=== PATIENT | female | born 1980 | race Caucasian/White ===

== ENCOUNTER 2020-04-04 11:14 | Outpatient (REF) | payer OTHER, SELFPAY | END 2020-04-04 11:15 | disposition home or self-care (01) | LOC: HO.LAB 11:14 | PROVIDERS: Visit Provider Internal Medicine | DX: Z20.828 Contact with and (suspected) exposure to other viral communicable diseases (principal) | CPT/HCPCS: C9803; U0003 ==

== ENCOUNTER 2020-04-30 12:24 | Outpatient (REF) | payer OTHER, SELFPAY | END 2020-04-30 12:25 | disposition home or self-care (01) | LOC: HO.LAB 12:24 | PROVIDERS: PCP Internal Medicine; Visit Provider Internal Medicine | DX: Z20.828 Contact with and (suspected) exposure to other viral communicable diseases (principal) | CPT/HCPCS: C9803; U0003 ==

== ENCOUNTER → 2022-05-15 13:53 | Outpatient (BNVA) | payer OTHER, SELFPAY | PROVIDERS: PCP Internal Medicine; Visit Provider Nurse Practitioner Family | DX: Z13.89 Encounter for screening for other disorder (principal) ==

== ENCOUNTER → 2022-05-28 10:57 | Outpatient (REF) | payer OTHER, SELFPAY | LOC: HO.SL 10:57 | PROVIDERS: PCP Internal Medicine; Visit Provider Nurse Practitioner Family | DX: E66.01 Morbid (severe) obesity due to excess calories (principal); R06.83 Snoring; R06.81 Apnea, not elsewhere classified; R53.83 Other fatigue; G47.19 Other hypersomnia | CPT/HCPCS: 95806 ==

== ENCOUNTER → 2022-06-02 07:57 | Outpatient (BNVA) | payer OTHER, SELFPAY | PROVIDERS: PCP Internal Medicine; Referring Provider Internal Medicine; Visit Provider Physician Assistant | DX: Z13.89 Encounter for screening for other disorder (principal) ==

== ENCOUNTER → 2022-06-09 14:29 | Outpatient (BNVA) | payer OTHER, SELFPAY | PROVIDERS: PCP Internal Medicine; Visit Provider Physician Assistant Surgical | DX: Z13.89 Encounter for screening for other disorder (principal) ==

== ENCOUNTER 2022-06-29 07:48 | Outpatient (REF) | payer BC, OTHER, SELFPAY ==
--- NOTE | ~2022-06-29 | XR_ITS ---
EXAMINATION: XR CHEST CLINICAL INFORMATION: Morbid to severe obesity COMPARISON: None TECHNIQUE: 2 views of the chest were obtained. FINDINGS: No significant abnormality is noted involving the heart, lungs, mediastinum, bony thorax or soft tissues. XR/XR chest 2V IMPRESSION: Unremarkable chest examination.
[2022-06-29 08:00] LABS: MANUAL DIFF FLAG NO
--- NOTE | 2022-06-29 08:08 | ECG_ITS ---
Test Reason : morbid obesity Blood Pressure : / mmHG Vent. Rate : 065 BPM Atrial Rate : 065 BPM P-R Int : 146 ms QRS Dur : 082 ms QT Int : 394 ms P-R-T Axes : 030 013 010 degrees QTc Int : 409 ms Normal sinus rhythm Normal ECG No previous ECGs available Referred By: Phan Ramirez Electronically Signed By:HIPOLITO ORDAZ MD
[2022-06-29 08:40] LABS: Basophils Absolute Auto 0.1 X10*3/uL (0.0-0.2); Basophils Percent Auto 1.2 % (0-2); Eosinophils Absolute Auto 0.3 X10*3/uL (0.0-0.4); Eosinophils Percent Auto 4.9 % (0-4); Hematocrit 41.4 % (37.0-47.0); Hemoglobin 13.6 g/dl (12.0-16.0); Imm Gran Abs Auto 0.01 X10*3/uL (0.00-0.03); Imm Gran Pct Auto 0.2 % (0.0-0.4); Lymphocytes Percent Auto 30.3 % (20-40); Mean Corpuscular HGB Conc 32.9 g/dl (31.0-35.0); Mean Corpuscular Hemoglobin 27.6 pg (27.0-33.0); Mean Corpuscular Volume 84.1 fL (80.0-98.0); Mean Platelet Volume 10.3 fL (9.4-12.3); Monocytes Absolute Auto 0.6 X10*3/uL (0.1-1.2); Monocytes Percent Auto 8.5 % (2-11); Neutrophils Absolute Auto 3.6 x10*3/uL (2.0-8.3); Neutrophils Percent Auto 54.9 % (45-73); Platelet Count 468 X10*3/uL (160-400); Red Blood Count 4.92 X10*6/uL (4.20-5.50); Red Cell Distribution Width 13.8 % (11.0-16.0); White Blood Count 6.6 X10*3/uL (4.8-10.8)
[2022-06-29 08:52] LABS: Estimated Average Glucose 108 mg/dL; Hemoglobin A1c % 5.4 %
[2022-06-29 09:20] LABS: Alanine Aminotransferase 28 U/L (0-31); Albumin Level 4.2 g/dL (3.5-5.0); Alkaline Phosphatase 22 U/L (39-117); Anion Gap 14 (12-20); Aspartate Amino Transferase 17 U/L (5-31); Bilirubin Total 0.4 mg/dL (0.0-1.0); Blood Urea Nitrogen 19 mg/dL (9-16); Calcium 9.7 mg/dL (8.4-10.2); Carbon Dioxide 26 mmol/L (22-29); Chloride 105 mmol/L (96-108); Cholesterol 188 mg/dL; Estimated Glomerular Filt Rate > 60; Glucose Random 82 mg/dL (60-115); HDL Cholesterol 46 mg/dL; Iron 43 mcg/dL (30-160); LDL Cholesterol Calculated 127 mg/dl; Percent Iron Saturation 14 % (15-50); Potassium 4.9 mmol/L (3.3-5.1); Sodium 140 mmol/L (135-145); Total Iron Binding Capacity 316 mcg/dL (228-428); Total Protein 7.1 g/dL (6.5-8.0); Triglycerides 76 mg/dL; Unsaturated Iron Binding 273 ug/dL
[2022-06-29 09:57] LABS: Ferritin 27 ng/mL (10-250); Folate 10.2 ng/mL (> or = 4.0); Insulin 8 uU/mL (2-29); TSH reflex Free T4 3.33 uIU/mL (0.32-4.0); Vitamin B12 914 pg/mL (200-900); Vitamin D 25-OH Total 20.4 ng/mL (>30)
[2022-06-30 13:58] LABS: Calcium (PTHI) 10.1 mg/dL (8.6-10.2); PTHI 46 pg/mL (16-77)
[2022-07-01 23:59] LABS: Zinc 74 mcg/dL (60-130)
[2022-07-02 04:34] LABS: Vitamin A 31 mcg/dL (38-98)
[2022-07-03 04:59] LABS: Vitamin B1 15 nmol/L (8-30)
== END 2022-06-29 07:49 | disposition home or self-care (01) ==
LOC: HO.XRAY 07:48
PROVIDERS: PCP Internal Medicine; Visit Provider Physician Assistant Surgical
DX: Z11.2 Encounter for screening for other bacterial diseases (principal); E66.01 Morbid (severe) obesity due to excess calories
CPT/HCPCS: 36415; 71046; 80053; 80061; 82306; 82607; 82728; 82746; 83036; 83525; 83540; 83970; 84425; 84443; 84590; 84630; 85025; 86140; 93005

== ENCOUNTER 2022-06-29 16:17 | Outpatient (REF) | payer BC, SELFPAY ==
[2022-07-03 15:07] LABS: H Pylori Breath Test Negative (Negative)
== END 2022-06-29 16:18 | disposition home or self-care (01) ==
LOC: HO.LNP 16:17
PROVIDERS: Visit Provider Physician Assistant Surgical
DX: E66.01 Morbid (severe) obesity due to excess calories (principal)
CPT/HCPCS: 83013

== ENCOUNTER → 2022-06-30 08:39 | Outpatient (BNVA) | payer BC, SELFPAY | PROVIDERS: PCP Internal Medicine; Referring Provider Physician Assistant Surgical; Visit Provider Dietitian, Registered | DX: E66.01 Morbid (severe) obesity due to excess calories (principal) | CPT/HCPCS: 97802 ==

== ENCOUNTER → 2022-07-09 09:30 | Outpatient (BNVA) | payer BC, SELFPAY | PROVIDERS: PCP Internal Medicine; Visit Provider Physician Assistant Surgical | DX: Z13.89 Encounter for screening for other disorder (principal) ==

== ENCOUNTER → 2022-07-14 09:00 | Outpatient (BNVA) | payer BC, SELFPAY | PROVIDERS: Referring Provider Physician Assistant Surgical; Visit Provider Counselor Mental Health | DX: F50.81 Binge eating disorder (principal); E66.01 Morbid (severe) obesity due to excess calories | CPT/HCPCS: 90791 ==

== ENCOUNTER → 2022-08-04 09:22 | Outpatient (BNVA) | payer BC, SELFPAY | PROVIDERS: PCP Internal Medicine; Visit Provider Physician Assistant Surgical | DX: Z13.89 Encounter for screening for other disorder (principal) ==

== ENCOUNTER 2022-08-18 08:00 | Outpatient (REF) | payer BC, SELFPAY ==
--- NOTE | ~2022-08-18 | FL_ITS ---
EXAMINATION: XR FLUOROSCOPY UPPER GI WITH AIR CLINICAL INFORMATION: Morbid/severe obesity due to excess calories. COMPARISON: None available. TECHNIQUE: Routine upper GI air-contrast study was performed in upright and lying position. FINDINGS: Following oral administration of thick barium and effervescent granules there is normal propagation bolus from the oral cavity through the pharynx, esophagus into stomach without any evidence of obstruction, narrowing or stricture. On placing patient supine and prone lying the course, caliber and peristalsis of the stomach, duodenal bulb and the sweep is normal. The mucosal pattern of the stomach and the duodenum is normal. Mild gastroesophageal reflux without hiatal hernia is noted. The soft tissues are normal. FLUOROSCOPY TIME: 1.4 minutes DOSE AREA PRODUCT: 40.94 uGy-m2 (microgray-meter squared) FL/FL upper GI w air IMPRESSION: Mild gastroesophageal reflux otherwise unremarkable upper GI air-contrast study.
--- NOTE | ~2022-08-18 | US_ITS ---
EXAMINATION: US COMPLETE ABDOMEN WITH LIVER ELASTOGRAPHY CLINICAL INFORMATION: Morbid/severe obesity due to excess calories. COMPARISON: None available. TECHNIQUE: Real-time imaging of the abdominal viscera. Noninvasive ultrasound liver fibrosis assessment is performed using Malathi ElastPQ point quantification shear wave elastography (2D-SWE) with a C5-2 MHz transducer. Multiple elastography samples are obtained. FINDINGS: PANCREAS: The visualized pancreatic head and body are normal in appearance. The remainder of the pancreas is obscured from visualization by the overlying bowel gas. ABDOMINAL AORTA: The proximal, middle, and distal aortic segments are normal in caliber. INFERIOR VENA CAVA: Visualized portions are normal. LIVER: Normal. The liver demonstrates normal size, contour and echogenicity. No focal lesion or intrahepatic biliary duct dilatation. The right lobe measures 17.7 cm in length. The left lobe measures 12.5 cm in length. Portal flow is hepatopedal. Shear wave liver elastography median stiffness is 2.48 m/s (reference: normal median stiffness is 1.3 m/s or less). IQR/median stiffness to assess sampling precision is 0.11 (reference: good quality data set is IQR/median stiffness of 0.15 or less). GALLBLADDER: There are multiple echogenic mobile gallstones without wall thickening. No pericholecystic fluid collection. COMMON BILE DUCT: Normal in caliber measuring 0.52 cm in diameter. RIGHT KIDNEY: There is anechoic cyst in the midpole measuring 1.4 x 0.9 x 1.4 cm. No hydronephrosis. No renal calculi or focal parenchymal lesions. The kidney measures 11.0 cm in maximum dimension. LEFT KIDNEY: Normal. No hydronephrosis. No renal calculi or focal parenchymal lesions. The kidney measures 11.1 cm in maximum dimension. SPLEEN: Normal. The spleen measures 10.4 cm in maximum dimension. FREE FLUID: None. Between the spleen and upper pole of left kidney is a solid mass measuring 3.3 x 3.2 x 3.4 cm, nonvascular. Adrenal lesion versus an exophytic solid mass. US/US abdomen comp w elastography IMPRESSION: Cholelithiasis without wall thickening or tenderness in right upper quadrant. Right renal 1.4 cm simple cyst There is a hypodense avascular solid appearing mass between the upper pole of left kidney and the spleen, probable adrenal adenoma, splenule or exophytic solid renal mass. Consider CT with and without contrast of upper abdomen. Liver elastography: Median liver stiffness measures 2.48 m/s suggestive of CSPH. REFERENCE: Society of Radiologists in Ultrasound Liver Stiffness Thresholds (2020): LIVER STIFFNESS THRESHOLDS: *Liver Stiffness equal or less than 1.3 m/s: High probability of being normal. *Liver Stiffness less than 1.7 m/s: In the absence of other known clinical signs, rules out compensated advanced chronic liver disease. *Liver Stiffness 1.7-2.1 m/s: Suggestive of compensated advanced chronic liver disease but need further test for confirmation. *Liver Stiffness over 2.1 m/s: Rules in compensated advanced chronic liver disease. *Liver Stiffness over 2.4 m/s: Suggestive of clinically significant portal hypertension. QUALITY OF DATA SET: *IQR/Median value equal or less than 0.15 implies a quality data set. *IQR/Median value over 0.15 implies a poor quality data set. SIGNIFICANT CHANGE FROM PRIOR EXAM: Significant change if liver stiffness measurement is 10% or greater from prior exam. OTHER CONSIDERATIONS: The stage of liver fibrosis may be overestimated in the setting of acute hepatitis, liver inflammation, elevated liver function tests, hepatic vascular congestion, obstructive cholestasis, non-fasting state, and infiltrative diseases such as amyloidosis and lymphoma. In some patients with NAFLD, the liver stiffness thresholds for compensated advanced chronic liver disease may be lower. In causes other than viral hepatitis and NAFLD, liver stiffness thresholds are not well established.
== END 2022-08-18 08:01 | disposition home or self-care (01) ==
LOC: HO.US 08:00
PROVIDERS: PCP Internal Medicine; Visit Provider Physician Assistant Surgical
DX: Z01.818 Encounter for other preprocedural examination (principal); E66.01 Morbid (severe) obesity due to excess calories; K21.9 Gastro-esophageal reflux disease without esophagitis
CPT/HCPCS: 74246; 76705; 76981

== ENCOUNTER 2022-08-27 11:01 | Outpatient (REF) | payer BC, OTHER, SELFPAY ==
--- NOTE | ~2022-08-27 | CT_ITS ---
EXAMINATION: CT ABDOMEN AND PELVIS WITHOUT AND WITH CONTRAST CLINICAL INFORMATION: Solid mass between the spleen and upper pole of the left kidney. Adrenal lesion versus exophytic solid mass. COMPARISON: Abdominal ultrasound of 08/18/2022 TECHNIQUE: Multidetector volumetric imaging was performed of the abdomen and pelvis before and after the IV administration of 100 mL of Omnipaque 300 intravenous contrast. Sagittal and coronal reformatted images were obtained on the technologist's workstation. This CT examination was performed using dose optimization techniques as appropriate, variously including the following: *Automated exposure control *Adjustment of mA and/or kV according to patient size (this includes techniques or standardized protocols for targeted exams where dose is matched to indication/reason for exam; i.e. extremities or head) *Use of iterative reconstruction technique DLP: 1605 mGy-cm FINDINGS: LUNG BASES: The visualized lung bases are unremarkable. No pleural or pericardial effusion. LIVER, GALLBLADDER, AND BILIARY TREE: The liver is normal in size, shape, and attenuation. No biliary ductal dilatation is present. There is a 5 mm low-density lesion seen at the dome of the diaphragm consistent with a small cyst. Patient status post cholecystectomy. PANCREAS: Unremarkable. No abnormal mass or peripancreatic inflammatory change. SPLEEN: Unremarkable. A small accessory spleen is present. ADRENAL GLANDS: There is some fullness of the right adrenal gland without significant nodule. The left adrenal gland is seen to contain a 3.5 x 4.0 x 3.0 cm mass as well as an adjacent 9 mm low-density mass. The nodule has Hounsfield unit measurements without contrast of -6 consistent with lipid rich adenoma. The smaller nodule has density measurements less than 10 consistent with small adenoma. Portal phase enhancement of the adrenal lesion is 52 Hounsfield units. 10 minute delayed imaging demonstrates a value of 17 Hounsfield units. The absolute and relative washout values are consistent with adenoma. KIDNEYS AND URETERS: The kidneys are normal in size, shape, and attenuation. No hydronephrosis, hydroureter, or calculi seen. No perinephric stranding. No solid lesion identified. There is a 1.9 x 1.1 cm right renal interpolar cyst. There is an 8 mm interpolar low density lesion within the left kidney likely related to cyst. BLADDER: Unremarkable. GASTROINTESTINAL TRACT: No dilated loops of large or small bowel are evident. No free air. There is a small amount of free fluid seen within the cul-de-sac. No pericolonic inflammatory change. The appendix is visualized and appears unremarkable. ABDOMINAL WALL: No significant hernia is appreciated. LYMPH NODES: No lymphadenopathy appreciated. VASCULAR: Unremarkable. PELVIC VISCERA: Within the left side of the uterine body there is a 3.1 x 2.5 cm low-density region consistent with fibroid. OSSEOUS STRUCTURES: No suspicious destructive bony lesions identified. CT/CT abdomen pelvis wo/w IV con IMPRESSION: A 4 cm left adrenal gland lesion consistent with adenoma as described above. Due to its size recommend a 12 month follow-up study. Small amount of free fluid within the pelvis as well as uterine fibroid. Bilateral renal cysts. Fleischner guidelines were followed.
[2022-08-27] MEDS: iohexoL 350 MG/ML 100 ML INFUS..BTL IV (11:54)
== END 2022-08-27 11:02 | disposition home or self-care (01) ==
LOC: HO.CT 11:01
PROVIDERS: PCP Internal Medicine; Visit Provider Physician Assistant Surgical
DX: R19.00 Intra-abdominal and pelvic swelling, mass and lump, unspecified site (principal)
CPT/HCPCS: 74178; Q9967

== ENCOUNTER → 2022-09-01 10:30 | Outpatient (BNVA) | payer BC, SELFPAY | PROVIDERS: PCP Internal Medicine; Visit Provider Physician Assistant Surgical | DX: Z13.89 Encounter for screening for other disorder (principal) ==

== ENCOUNTER → 2022-09-07 07:57 | Outpatient (BNVA) | payer BC, SELFPAY | PROVIDERS: PCP Internal Medicine; Referring Provider Internal Medicine; Visit Provider Surgery ==

== ENCOUNTER 2022-09-10 07:53 | Outpatient (REF) | payer BC, SELFPAY ==
[2022-09-10 08:15] LABS: MANUAL DIFF FLAG NO
[2022-09-10 08:27] LABS: Basophils Absolute Auto 0.1 X10*3/uL (0.0-0.2); Eosinophils Absolute Auto 0.3 X10*3/uL (0.0-0.4); Eosinophils Percent Auto 5.4 % (0-4); Hematocrit 40.9 % (37.0-47.0); Hemoglobin 13.5 g/dl (12.0-16.0); Imm Gran Abs Auto 0.01 X10*3/uL (0.00-0.03); Imm Gran Pct Auto 0.2 % (0.0-0.4); Lymphocytes Absolute Auto 1.5 X10*3/uL (1.2-4.9); Lymphocytes Percent Auto 24.6 % (20-40); Mean Corpuscular Hemoglobin 27.4 pg (27.0-33.0); Mean Platelet Volume 10.1 fL (9.4-12.3); Monocytes Absolute Auto 0.5 X10*3/uL (0.1-1.2); Monocytes Percent Auto 7.7 % (2-11); Neutrophils Absolute Auto 3.8 x10*3/uL (2.0-8.3); Neutrophils Percent Auto 61.1 % (45-73); Platelet Count 394 X10*3/uL (160-400); Red Blood Count 4.93 X10*6/uL (4.20-5.50); Red Cell Distribution Width 13.7 % (11.0-16.0); White Blood Count 6.1 X10*3/uL (4.8-10.8)
[2022-09-10 09:03] LABS: Estimated Average Glucose 103 mg/dL; Hemoglobin A1c % 5.2 %
[2022-09-10 09:10] LABS: Alanine Aminotransferase 32 U/L (0-31); Albumin Level 4.2 g/dL (3.5-5.0); Alkaline Phosphatase 25 U/L (39-117); Anion Gap 14 (12-20); Aspartate Amino Transferase 20 U/L (5-31); Bilirubin Total 0.6 mg/dL (0.0-1.0); Blood Urea Nitrogen 12 mg/dL (9-16); C Reactive Protein 2.38 mg/dL (< or = 0.50); Calcium 9.6 mg/dL (8.4-10.2); Carbon Dioxide 25 mmol/L (22-29); Chloride 104 mmol/L (96-108); Cholesterol 165 mg/dL; Estimated Glomerular Filt Rate > 60; Glucose Random 83 mg/dL (60-115); HDL Cholesterol 41 mg/dL; Iron 55 mcg/dL (30-160); LDL Cholesterol Calculated 110 mg/dl; Percent Iron Saturation 18 % (15-50); Potassium 4.6 mmol/L (3.3-5.1); Sodium 138 mmol/L (135-145); Total Iron Binding Capacity 298 mcg/dL (228-428); Total Protein 7.2 g/dL (6.5-8.0); Triglycerides 72 mg/dL; Unsaturated Iron Binding 243 ug/dL
[2022-09-10 09:36] LABS: Ferritin 52 ng/mL (10-250); TSH reflex Free T4 1.68 uIU/mL (0.32-4.0); Vitamin B12 1710 pg/mL (200-900); Vitamin D 25-OH Total 44.6 ng/mL (>30)
[2022-09-11 15:33] LABS: Calcium (PTHI) 9.7 mg/dL (8.6-10.2); PTHI 39 pg/mL (16-77)
[2022-09-16 00:48] LABS: Zinc 84 mcg/dL (60-130)
[2022-09-16 15:03] LABS: Vitamin B1 8 nmol/L (8-30)
[2022-09-17 21:44] LABS: Vitamin A 20 mcg/dL (38-98)
== END 2022-09-10 07:54 | disposition home or self-care (01) ==
LOC: HO.LAB 07:53
PROVIDERS: PCP Internal Medicine; Visit Provider Surgery
DX: Z01.818 Encounter for other preprocedural examination (principal); E66.01 Morbid (severe) obesity due to excess calories; D35.02 Benign neoplasm of left adrenal gland; K74.00 Hepatic fibrosis, unspecified; K76.0 Fatty (change of) liver, not elsewhere classified; G47.33 Obstructive sleep apnea (adult) (pediatric); Z79.899 Other long term (current) drug therapy
CPT/HCPCS: 36415; 80053; 80061; 82306; 82607; 82728; 83036; 83540; 83970; 84425; 84443; 84590; 84630; 85025; 86140

== ENCOUNTER 2022-09-16 06:09 | Inpatient (IN) | payer BC, OTHER, SELFPAY ==
[2022-09-09 12:43] VITALS: BMI 43.8
--- NOTE | 2022-09-15 08:44 | HO.ANESPROP2 ---
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 intensive care unit nurse to a significant other at home: Yes (9 year old daughter) Do you presently have visiting nurse or other home services: No Alcohol intake: current Alcohol intake frequency: holidays/special occasions only Patient Tobacco Use Status: Former Tobacco user Quit Date: 2012 Tobacco use type: Cigarette e-Cigarette/Vaping Use: Never Used service: No Current occupational status: employed Cognitive needs: No Hearing needs: No Vision needs: Yes Meds Allergies Allergy/AdvReac Type Severity Reaction Status Date / Time Sulfa (Sulfonamide Allergy Severe ANAPHYLAXIS Verified 09/10/22 08:27 Antibiotics) , [SULFA (SULFONAMIDE naphylaxis, ANTIBIOTICS)] throat swelling latex [LATEX] Allergy Mild RASH Verified 09/10/22 08:27 oxycodone AdvReac Intermediate Vomiting Verified 09/10/22 08:27 Exam Exam Date and Time: September 15, 2022 0844 Height,Weight and Vital Signs: Height 5 ft 1 in Weight 105.233 kg Pertinent Lab Results Pertinent Lab Results: Laboratory Tests 09/10/22 08:04 Blood Type A Positive Antibody Screen NEGATIVE Laboratory Tests 09/10/22 09/10/22 08:13 08:13 WBC 6.1 Hgb 13.5 Hct 40.9 Plt Count 394 Sodium 138 Potassium 4.6 Chloride 104 Carbon Dioxide 25 BUN 12 Creatinine 0.67 Narrative Narrative: EKG 06/2022 Vent. Rate : 065 BPM ? ? Atrial Rate : 065 BPM ?? P-R Int : 146 ms? QRS Dur : 082 ms ? ? QT Int : 394 ms ? ? ? P-R-T Axes : 030 013 010 degrees ?? QTc Int : 409 ms ? Normal sinus rhythm Normal ECG No previous ECGs available Assessment and Plan Assessment Anesthesia Assessment: Chart Reviewed Documented by User: Isreal Miller MD 09/16/22 07:42 PMFSH Past Medical History Medical History Binge-eating disorder, in partial remission, mild Excessive daytime sleepiness Fatigue History of depression History of infertility Loud snoring Morbid obesity ALMA DELIA (obstructive sleep apnea) PONV (postoperative nausea and vomiting) Witnessed apneic spells Patient : No Family History Family History Mother High cholesterol Arthritis Bone disease Father Kidney failure Daughter No problems noted. Family history of problems with anesthesia: No Surgical History Surgical History History of bilateral fallopian tube excision History of History of Problems with Anesthesia: No Social History Social History Household Members: Family Housing: House Are you a primary intensive care unit nurse to a significant other at home: Yes (9 year old daughter) Do you presently have visiting nurse or other home services: No Alcohol intake: current Alcohol intake frequency: holidays/special occasions only Patient Tobacco Use Status: Former Tobacco user Quit Date: 2012 Tobacco use type: Cigarette e-Cigarette/Vaping Use: Never Used service: No Current occupational status: employed Cognitive needs: No Hearing needs: No Vision needs: Yes Meds Allergies Allergy/AdvReac Type Severity Reaction Status Date / Time Sulfa (Sulfonamide Allergy Severe ANAPHYLAXIS Verified 09/10/22 08:27 Antibiotics) , [SULFA (SULFONAMIDE naphylaxis, ANTIBIOTICS)] throat swelling latex [LATEX] Allergy Mild RASH Verified 09/10/22 08:27 oxycodone AdvReac Intermediate Vomiting Verified 09/10/22 08:27 Exam Airway Mallampati Class: I TM Dist: >3cm Neck ROM: Full Heart: ok Lungs: ok Assessment and Plan Final Anesthetic Review Family History of Problems with Anesthesia: No History of Problems with Anesthesia: No NPO: Yes ASA Class: III Final Preanesthetic Review: No Changes in Pt Med Stat, Meds/Allgs Chart Reviewed, Consent Obtained/Reviewed and Anes Risks/Benef Reviewed Patient Risk: Intermediate Procedure Risk: Intermediate Anesthetic Plan Anesthetic Plan: GA and Agree w/ Assess. and Plan Disposition: Standard PACU
[2022-09-15 13:59] LABS: COVID-19 Test Negative (Negative); IDNOW Serial# 9DB6401D
[2022-09-16] VITALS (12 sets, daily range): BP systolic 117–154; BP diastolic 60–99; PULSE 60–83; RESP 15–19; TEMP 36–37.1; O2SAT 96–100; BMI 43.8
--- NOTE | 2022-09-16 06:54 | P.OP_ITS ---
Operative Note Operative Note Date of Service: 09/16/22 Narrative: Preop diagnosis: [Obesity, ALMA DELIA, NAFLD, liver fibrosis] Postop diagnosis: [Same] Procedure: [Laparoscopic sleeve gastrectomy, gastropexy, intraoperative esophagogastroscopy] Surgeon: Yaniv Ortiz MD Assist: [Elsie Nuñez PA-C] Anesthesia: [GET, Marcaine, 0.5% with epi] Estimated blood loss: [3cc] Specimen: [Portion of stomach with fundus] Intraoperative findings: [No evidence of a hiatal hernia, grossly normal liver, anterior stomach and visualized spleen] Indications: [The patient is a 42-year-old woman with obesity and obstructive sleep apnea, NAFLD & hepatic fibrosis per ultrasonography who has failed medical management of her obesity multiple times. She presented to the surgical weight loss program at a weight of 262 lb/BMI of 49.6. During her workup, she was noted to have a left adrenal incidentaloma which needs repeat CT in 1 year in 2023. Management options of her obesity and related health issues including continued medical management versus bariatric surgery were reviewed, including gastric bypass and sleeve gastrectomy. The patient wanted to proceed with a laparoscopic sleeve gastrectomy, intraoperative endoscopy, possible hiatal hernia repair and possible ventral hernia repair. I reviewed the inherent risks of this procedure which include, but are not limited to: Bleeding that could require another operation or blood transfusion; the inherent risks of transfusion reaction infectious disease from blood transfusions; the risk of staple line leaks that could cause sepsis, multi-system organ failure and ; the risk of mesenteric or deep vein thrombosis of the lower extremities that could cause a fatal pulmonary embolism was reviewed; the risk of GERD that could require conversion to gastric bypass was discussed; the risk of recurrent hiatal hernia, especially in the setting of weight regain was reviewed. The risk of weight regain if maladaptive eating and sedentary behavior continue was discussed. The importance of proper diet and increased activity to augment surgical weight loss and the fact that no operation would result in weight loss of poor dietary decisions and sedentary behavior are resumed were discussed at length and apparently understood. The patient had the option of having a it auditor present and declined this option. The patient seemed understand her options and wanted to proceed.] Procedure: [The patient was identified in the preoperative holding area and again an operating room 6. 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 She was placed on the operating room table in supine position, a footboard was utilized. She was induced in general endotracheal anesthesia administered with excellent effect. The patient was identified in the preoperative holding area by myself and again in the operating suite by myself and the OR team. Patient was placed supine on the operating table. Safety straps were utilized and a footboard utilized. The patient was induced in general endotracheal anesthesia administered with excellent effect. An appropriate time-out was performed. The patient's abdomen was then widely prepped and draped in the usual manner for surgery using chlorprep. Antibiotics per protocol were administered by Anesthesia. After infiltrating preemptive local in the skin and subcutaneous tissues in the left upper quadrant, a stab incision was made sharply in the left subcostal abdomen and the Veress needle inserted without incident. An appropriate drop test was performed then a pneumoperitoneum of 15 mmHg was obtained using carbon dioxide. Opening pressures were 7 mmHg. Next, a 5 mm 0 degree scope over a 5 mm Optiview trocar was used to access the abdomen via the epigastric incision in the midline. Once the abdomen was entered, the the trocar obturator was removed and the laparoscope was used to confirm there was no injury from the Veress needle nor trocar insertion injury to the bowel or mesentery, then the scope was switched to a 5 mm 45 degree laparoscope. Next, using preemptive local, additional 5 mm trocars were placed under direct laparoscopic vision on the patient's left abdomen, then right and the 5 mm midline trocar upsized to a 12 mm to accommodate the stapler. The patient was then positioned in reverse Trendelenburg and the liver retractor deployed through the right lateral 5 mm trocar and secured. A 40 Maltese ViSiGi bougie was inserted by Anesthesia per os and advanced to the stomach to decompress. It was then withdrawn to the GE junction all under direct laparoscopic vision. Dissection was begun along the greater curvature using the 5 mm [place] LigaSure for hemostasis and continued to the left waqas of the diaphragm. Dissection was then carried towards the pylorus to 3-4 cm from the pylorus and retro gastric adhesions lysed. The gastroesophageal fat pad was carefully mobilized taking care to avoid injury to the esophagus and stomach and dissection carried towards the short gastrics taking care to avoid injury to the spleen and splenic artery. The diaphragmatic hiatus was carefully examined for a hernia, and no apparent hernia was appreciated. Next, the 40 Fr ViSiGi bougie was advanced by anesthesia under direct vision and laparoscopic guidance and positioned in the antrum approximately 3 cm from the pylorus using laparoscopic graspers to serve as a guide for a stapled sleeve gastrectomy. Stapling was performed with [employer] power stapler, purple 45 and then 60 mm loads with good hemostasis. The bougie served as a guide to maintain the same sleeve caliber to avoid stricture & sleeve distortion. The 10 mm clip clinical dietitian was used to apply additional clips to the staple line. Care was taken to be sure that the sleeve laid flat and was without stricture. Once the sleeve was complete, the portion of stomach was placed in the lower abdomen to be sent for removal and permanent section. The staple line, gastrocolic omentum, spleen and short gastric areas were all inspected for hemostasis which was found to be good. After inspecting again for hemostasis, a gastropexy was performed using 2-0 Polysorb suture to secure the sleeve gastrectomy to the gastrocolic omentum. Next, I broke scrub perform an on-table upper endoscopy to assess the sleeve and the esophagus and stomach. The patient was returned to neutral position and the Olympus 180 gastroscope was advanced taking care to preserve the endotracheal tube. The esophagus was intubated without incident. Minimal air was insufflated and the scope advanced into the newly formed sleeve. The staple line was inspected for hemostasis and the morphology of the sleeve appeared straight with a uniform diameter. Intraoperatively, there was no evidence of staple line leak seen during laparoscopy as air was insufflated via endoscope. The scope was then used to aspirate the air from the sleeve withdrawn and removed. I then rescrubbed to return to the operative field and again inspected the field for hemostasis. After final assessment for hemostasis, the patient was returned to neutral position, a Jenny used to withdraw the resected gastric specimen which was sent for permanent section. The fascia of the 12 mm midline was closed using an 0 Polysorb figure of 8 on a suture passer under direct laparoscopic vision. The abdomen was then deflated and all trocars removed. The suture was then tied and the skin closed with 4-0 Monocryl subcuticular sutures. The abdomen was then washed and dried, benzoin and Steri-Strips applied followed by Tegaderms. The patient tolerated the procedure well was then extubated the recover in stable condition. All sponge needle and instrument counts were correct x2. The pt requested that I call her sister Ashley Romo at [phone] to a pprise her of the operation and typical apolinar/postoperative plan. Her questions seemed to be satisfactorily answered.]
--- NOTE | 2022-09-16 06:54 | MHC.SHP ---
Pre-Procedural Eval Section A Date of Service: 09/16/22 The patient is an INPATIENT: Yes The History & Physical has been completed within 30 days and I have reviewed it.: Yes Section B Chief Complaint: Obesity,ObstructiveSleepApnea,LiverFibrosis,NAFLD Allergies: Allergies Allergy/AdvReac Type Severity Reaction Status Date / Time Sulfa (Sulfonamide Allergy Severe ANAPHYLAXIS Verified 09/10/22 08:27 Antibiotics) , [SULFA (SULFONAMIDE naphylaxis, ANTIBIOTICS)] throat swelling latex [LATEX] Allergy Mild RASH Verified 09/10/22 08:27 oxycodone AdvReac Intermediate Vomiting Verified 09/10/22 08:27 Plan I have reviewed the history and physical and performed a pertinent physical examination on my patient. No changes have occurred unless specified. Time Spent With Patient Time: Total time managing care of this patient today ____ minutes.
--- NOTE | 2022-09-16 07:03 | PHA.MEDREC ---
Pharmacy Consult ? Medication Reconciliation Pharmacy has completed the medication reconciliation.
[2022-09-16] MEDS: Lactated Ringers 1,000 ML 150 ML IVCONT (07:11)
[2022-09-16] MEDS: Aprepitant 32 MG/4.4 ML VIAL IVPUSH (07:12)
[2022-09-16 07:24] LABS: UPreg QC Valid YES; Urine Pregnancy NEGATIVE (NEGATIVE)
--- NOTE | 2022-09-16 10:23 | PM.DS ---
DS: Providers Provider Date of Service: 09/17/22 Date of admission: 09/16/22 06:09 Primary care physician: Dian Park MD DS: Summary Hospital Course Hospital Course: ADMITTING DIAGNOSIS: morbid obesity,?ALMA DELIA, NAFLD, L adrenal cortical adenoma ? DISCHARGE DIAGNOSIS: same, s/p laparoscopic sleeve gastrectomy and gastropexy ? PAST SURGICAL HISTORY:?, bilateral fallopian tube excision ? PROCEDURE: upper endoscopy, laparoscopic sleeve gastrectomy and gastropexy ? DISCHARGE SUMMARY: ? History of Present Illness: ? The patient is a? 42? year-old woman with a BMI of? ?43.8 ? kg/m2 and associated co-morbidities as described above. The patient had extensive work-up, lost? ?30.8 ? lbs preoperatively and was electively scheduled for laparoscopic, possible open sleeve gastrectomy and gastropexy. Risks and complications of the surgery were discussed with the patient in advance, particularly the possibility of , pulmonary embolism, anastomotic leak, bleeding, bowel injury, GERD, cardiac, renal or pulmonary complications. The patient understood all the risks and was in agreement with the surgical plan. ? Hospital Course: ? The patient underwent an uneventful laparoscopic sleeve gastrectomy with gastropexy on the day of admission. Postoperatively, the patient was transferred to the surgical floor. The patient received IV Acetaminophen and IV dilaudid for pain control. Patient was started on bariatric phase 1 diet POD #0. On postoperative day one, the patient was feeling well without nausea, vomiting, fevers, or tachycardia. The patient had some mild incisional pain and the abdomen was soft.? ? On the morning of postoperative day one, the patient was continued on 1 ounce of water or ice every half hour. During the day, the patient did fairly well, having some incisional pain, but able to ambulate adequately and to tolerate liquids well. ? Since the patient is doing well, we decided that the patient was ready to be discharged. The patient was given instructions to follow-up with me next week and to call my office for any fever over 101, persistent abdominal pain, nausea, vomiting, GERD, symptoms of DVT such as calf tenderness, or leg swelling, or pulmonary embolism such as chest pain or shortness of breath.? The patient was also instructed to drink 40-60 ounces of liquids per day using the 1-ounce cups. The patient had been given prescriptions for Tylenol for pain, Zofran prn for nausea, and pantoprazole and carafate previously. The patient was encouraged to ambulate and use the incentive spirometer. The patient was allowed to shower, but no baths, and encouraged to stay active at home. All of these instructions were given to the patient personally. All questions were answered and the patient understood all instructions, the instructions were also given to the patient in print. Time Spent with Patient Time attestation: Total time managing care of this patient today ____ minutes. Discharge coordination time: Less than 30 minutes Quality: Safe Use of Opioids Does Pt have an Active Cancer Diagnosis on the Problem List?: No Quality: Stroke Does the patient have a stroke diagnosis?: No Physical Exam Vital Signs: Vital Signs: Last Vital Signs Temp 98.1 F 09/16/22 10:13 Pulse 68 09/16/22 10:13 Resp 19 09/16/22 10:13 BP 140/84 H 09/16/22 10:13 Pulse Ox 100 09/16/22 10:13 O2 Del Method Nasal Cannula wit h Capnography 09/16/22 10:13 O2 Flow Rate 3 09/16/22 10:13 BMI result Body Mass Index 43.8 DS: Data Data Completed and Pending Pending studies at discharge: Pending at discharge 09/16/22 09:30 Surgical [PTH] Routine Labs on day of discharge: Laboratory Results - last 24 hr 09/15/22 09/16/22 13:09 06:10 Urine Test NEGATIVE COVID-19 ([facility]) Negative COVID-19 Clin Com See Note Discharge Plan Discharge Anticipated Discharge Date/Time: 09/17/22 10:00 Patient Disposition: Home, Self-Care Discharge Diagnosis: morbid obesity Referrals: Dian Park MD [Primary Care Provider] - 1 Week Discharge Medications: Continued ondansetron HCl 4 mg tablet 4 mg PO Q6H PRN (Reason: nausea and vomiting) Qty: 20 0RF pantoprazole 40 mg tablet,delayed release (DR/EC) 40 mg PO QAM 30 Days Qty: 30 2RF sucralfate 100 mg/mL suspension 10 ml PO BID 30 Days Qty: 600 2RF acetaminophen 500 mg/15 mL liquid 500 mg PO Q6H PRN (Reason: fever or pain) Qty: 237 2RF Discontinued cholecalciferol (vitamin D3) 125 mcg (5,000 unit) capsule 125 mcg PO DAILY Qty: 90 0RF vitamin A palmitate 10,000 unit capsule 10,000 unit PO DAILY Qty: 90 1RF polyethylene glycol 3350 [Miralax] 17 gram powder in packet See Rx Instructions PO DAILY Qty: 14 0RF Rx Instructions: Take 7 packets 2 days before surgery and 7 packets 1 day before surgery. Mix each packet with 8 oz's of water before surgery. Discharge Orders: Discharge Order (Routine); Ordered 09/17/22 Ordered By: Elsie Nuñez Activity on Discharge: No heavy lifting Stand Alone Forms: Patient Portal Discharge page Care Plan Goals: weight loss Health Concerns: morbid obesity Plan of Treatment: No tub baths, sex or returning to work until discussed at first post op appointment. No alcohol, tobacco or illegal drug use. Continue to use incentive spirometer hourly while awake. Walk in home for 5- 10 minutes every 2 hours during the first week. Wear abdominal binder with activity. Follow all meal plan instructions from your bariatric surgeon. Review bariatric handbook and call with any questions. Discharge Instructions 1. Please call your doctor or come back to the emergency room should any new symptoms arise. 2. Activity: abstain from alcohol,? limited stair climbing, no bending, no driving, no exercise, no illicit substances, no lifting, no sex, no tub bath, no work. 4. Diet: follow your bariatric surgeons recommendations for advancing diet. 5. Dressing Change/Wound Care: Your incisions are covered with waterproof dressings. You can shower with these and pat dry. Do not rub over dressings or incisions. If the area is tender, you may apply an ice pack for short intervals (no more than 20 minutes on, followed by at least 20 minutes off). Do not apply heat. Do not use creams, lotions, or topical antibiotics unless instructed to do so by your surgeon. 6. Call your doctor if: - Your temperature exceeds 101.5 F - You experience excessive pain or swelling - You have an unexpected reaction to medication - You have excessive bleeding - You experience continued vomiting/nausea - Your incision begins to separate - Your incision shows signs of infection such as increased redness, swelling, excessive pain, heat, or drainage (light blood or clear fluid is normal) General instructions: No lifting greater than 10 lbs for the next 6 weeks[address] driving within 24 hours of taking narcotic pain medications. If you do not move your bowels in the next 2 days, please take milk of magnesia over the counter. Please follow the post op diet and do not advance your diet until you are seen in the office in about 2 weeks. Please walk around your home every hour or two to prevent blood clots from forming in your legs. You do not need to wake from sleeping to walk. Please sleep in a bed or couch to prevent kinking at the hips and knees. Please take your incentive spirometer (your lung computational scientist) home with you and use it for the next few days to prevent pneumonias. You may shower, no hot tubs, baths or swimming pools. Please call the office with any questions or concerns such as increasing abdominal pain, fever, chills, shortness of breath, chest pain, leg pain or swelling, or redness or drainage from your incisions. Please make sure you are consuming 40-60 ounces of total fluids per day. Avoid all carbonation. Do not hesitate to contact the office with any questions at . The patient's medical history has been reviewed and they are considered low risk for post op DVT and therefore DVT prophylaxis is not considered necessary. Travel after surgery was reviewed. The patient has not disclosed any travel plans during the first 30 days after surgery and they have been advised that within the first 30 days after surgery any bus, plane, train or car travel over 2 hours in duration is contraindicated due to the possibility of developing blood clots from immobility. Any travel, needs to include periods of ambulation of 10 minutes in duration every 2 hours.? The patient was instructed to discuss any plans for travel during this period with their bariatric surgeon. Assessment: s/p laparoscopic sleeve gastrectomy with gastropexy
[2022-09-16] MEDS: Lactated Ringers 1,000 ML 100 ML IVCONT ×2 (10:52→20:13)
[2022-09-16 11:13] LABS: Hematocrit 37.7 % (37.0-47.0); Hemoglobin 12.4 g/dl (12.0-16.0)
[2022-09-16 11:26] LABS: Anion Gap 15 (12-20); Blood Urea Nitrogen 9 mg/dL (9-16); Calcium 8.8 mg/dL (8.4-10.2); Carbon Dioxide 25 mmol/L (22-29); Chloride 103 mmol/L (96-108); Creatinine Clr Calc Pharmacy 128.5; Estimated Glomerular Filt Rate > 60; Glucose Random 110 mg/dL (60-115); Potassium 4.1 mmol/L (3.3-5.1); Sodium 139 mmol/L (135-145)
--- NOTE | 2022-09-16 11:44 | PC.NURSE ---
Pt up From OR. A&Ox3, c/o lower abd discomfort. Lungs clear diminished, no sob or chest pain, O2 2L NC. Hypoactive bowel sounds, patient is obese. 5 Dressings on ABD, CDI. IVF running per order. Call almonte within reach, VSS, will continue to monitor for needs. APAP and ABT ordered early this afternoon.
--- NOTE | 2022-09-16 12:56 | PM.PNGS ---
Subjective Subjective Date of Service: 09/16/22 Patient reports: no new complaints Interval history: Patient reports that she is doing well. She got up to urinate and has had a little water. She has no severe pain and no vomiting. She denies any difficulty breathing or shortness of breath. Physical Exam Vital Signs: Vital Signs: Last Vital Signs Temp 96.9 F 09/16/22 11:42 Pulse 61 09/16/22 11:42 Resp 18 09/16/22 11:42 BP 122/60 09/16/22 11:42 Pulse Ox 100 09/16/22 11:42 O2 Del Method Nasal Cannula 09/16/22 11:42 O2 Flow Rate 2 09/16/22 11:42 BMI result Body Mass Index 43.8 On exam she is nontoxic She is in no acute respiratory distress Abdominal binder is intact. The nurse had reported some serosanguineous drainage from the middle dressing which I assured them is expected secondary to the Zinrelief pain medication instilled at the conclusion of the procedure. Objective Data Active Medications Famotidine (Famotidine/Pf 20 Mg/2 Ml Vial) 20 mg IVPUSH BID [facility] Hydromorphone HCl (Hydromorphone Hcl 0.5 Mg/0.5 Ml Syringe) 0.25 mg IVPUSH Q4H PRN; Protocol PRN Reason: Pain, Moderate(Pain Scale 4-6) Lactated Ringer's (Lr) 1,000 mls @ 100 mls/hr IVCONT .Q10H [facility] Last Admin: 09/16/22 10:52 Dose: 100 mls/hr Documented By: ALHAJI Cefazolin Sodium/Dextrose (Ancef) 2 gm in 50 mls @ 100 mls/hr IV POSTOP ONE Stop: 09/16/22 14:29 Acetaminophen (Ofirmev) 1,000 mg in 100 mls @ 16.7 mls/hr IV .Q6H [facility] Metoclopramide HCl (Metoclopramide Hcl 10 Mg/2 Ml Vial) 10 mg IVPUSH Q6H PRN PRN Reason: Nausea Ondansetron HCl (Ondansetron Hcl 4 Mg/2 Ml Vial) 4 mg IVPUSH Q8H [facility] Last Admin: 09/16/22 11:30 Dose: Not Given Documented By: HARIKA Non-Admin Reason: Just given promethazine in OR Sodium Chloride (0.9 % Sodium Chloride Flush 3 Ml Syringe) 3 ml IVFLUSH QSHIFT [facility] Last Admin: 09/16/22 12:44 Dose: Not Given Documented By: HARIKA Non-Admin Reason: IV Running Labs 09/16/22 11:05 09/16/22 11:05 Labs: Laboratory Results - last 24 hr 09/15/22 09/16/22 09/16/22 13:09 06:10 11:05 Anion Gap 15 Estim Creat Clear Calc 128.5 Estimated GFR > 60 Random Glucose 110 Calcium 8.8 D Urine Test NEGATIVE COVID-19 ([facility]) Negative COVID-19 Clin Com See Note Procedures Date of Service Date of Service: 09/16/22 Progress Note: A&P Assessment and plan (1) S/P laparoscopic sleeve gastrectomy: Status: Acute (2) Morbid obesity: Status: Acute (3) ALMA DELIA (obstructive sleep apnea): Status: Acute (4) 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 When she is able, ambulate ad ricardo. Time Spent With Patient Time: Total time managing care of this patient today ____ minutes. Quality Stroke Does the patient have a stroke diagnosis?: No VTE Prior VTE?: No VTE Risk Level:: Surgical - moderate VTE Device Contraindication: N/A - Device Ordered VTE Drug Contraindication: Treatment Not Indicated
[2022-09-16] MEDS: ceFAZolin Sodium/Dextrose,Iso 2 GM/50 ML PIGGYBACK IV (13:00)
[2022-09-16] MEDS: Acetaminophen 1,000 MG/100 ML PIGGYBACK 16.7 MG IV ×2 (14:01→21:15)
--- NOTE | 2022-09-16 14:17 | PC.NURSE ---
Ambulating well around the unit with SIVAKUMAR
--- NOTE | 2022-09-16 14:30 | PC.NURSE ---
MD Ortiz paged, Patients middle of five dressings slight saturated with bloody drainage.
--- NOTE | 2022-09-16 16:40 | PC.NURSE ---
Pt bleeding strike through with centre dressing, notified, dressing changed, steri strips intact.
[2022-09-16] MEDS: ondansetron HCL 4 MG/2 ML VIAL IVPUSH (18:13)
[2022-09-16] MEDS: Metoclopramide HCl 10 MG/2 ML VIAL IVPUSH (21:09)
[2022-09-16] MEDS: Famotidine/PF 20 MG/2 ML VIAL IVPUSH (21:09)
[2022-09-17] MEDS: ondansetron HCL 4 MG/2 ML VIAL IVPUSH (03:25)
[2022-09-17] MEDS: Acetaminophen 1,000 MG/100 ML PIGGYBACK 16.7 MG IV (03:36)
[2022-09-17 03:39] VITALS: BP 154/72; PULSE 69; RESP 17; TEMP 36.1
[2022-09-17] MEDS: Lactated Ringers 1,000 ML 100 ML IVCONT (06:05)
[2022-09-17 06:43] LABS: MANUAL DIFF FLAG NO
[2022-09-17 06:49] LABS: Basophils Percent Auto 0.2 % (0-2); Hematocrit 34.1 % (37.0-47.0); Hemoglobin 11.5 g/dl (12.0-16.0); Imm Gran Abs Auto 0.04 X10*3/uL (0.00-0.03); Imm Gran Pct Auto 0.3 % (0.0-0.4); Lymphocytes Absolute Auto 1.9 X10*3/uL (1.2-4.9); Lymphocytes Percent Auto 15.2 % (20-40); Mean Corpuscular HGB Conc 33.7 g/dl (31.0-35.0); Mean Corpuscular Hemoglobin 28.2 pg (27.0-33.0); Mean Corpuscular Volume 83.6 fL (80.0-98.0); Mean Platelet Volume 10.8 fL (9.4-12.3); Monocytes Absolute Auto 1.2 X10*3/uL (0.1-1.2); Neutrophils Absolute Auto 9.6 x10*3/uL (2.0-8.3); Neutrophils Percent Auto 75.3 % (45-73); Platelet Count 312 X10*3/uL (160-400); Red Blood Count 4.08 X10*6/uL (4.20-5.50); Red Cell Distribution Width 13.8 % (11.0-16.0); White Blood Count 12.8 X10*3/uL (4.8-10.8)
[2022-09-17] MEDS: Famotidine/PF 20 MG/2 ML VIAL IVPUSH (07:00)
--- NOTE | 2022-09-17 07:16 | PM.PNGS ---
Subjective Subjective Date of Service: 09/17/22 Patient reports: feels better and tolerating liquids well Interval history: The patient is seen in follow-up. She reports she had a restful night but did express some concerns over the serosanguineous oozing from her epigastric incision that required her dressing to be changed. She denies any regurgitation, heartburn, dysphagia, odynophagia. She also has no localizing neurologic symptoms, chest pain or shortness of breath. She has been tolerating sips of water per protocol and believes she is ready for discharge. Physical Exam Vital Signs: Vital Signs: Last Vital Signs Temp 97.0 F 09/17/22 03:39 Pulse 69 09/17/22 03:39 Resp 17 09/17/22 03:39 BP 154/72 H 09/17/22 03:39 Pulse Ox 97 09/16/22 19:12 O2 Del Method Room Air 09/17/22 03:39 O2 Flow Rate 96 09/17/22 03:39 BMI result Body Mass Index 43.8 On exam she is in good spirits She is anicteric and nontoxic She is in no acute respiratory distress Her abdominal dressings are clean and intact. The patient notes that the epigastric site that is been oozing had the Band-Aid changed at 0300. Abdomen is soft with appropriate tenderness Objective Data Active Medications Famotidine (Famotidine/Pf 20 Mg/2 Ml Vial) 20 mg IVPUSH BID [facility] Last Admin: 09/17/22 07:00 Dose: 20 mg Documented By: HARIKA Hydromorphone HCl (Hydromorphone Hcl 0.5 Mg/0.5 Ml Syringe) 0.25 mg IVPUSH Q4H PRN; Protocol PRN Reason: Pain, Moderate(Pain Scale 4-6) Lactated Ringer's (Lr) 1,000 mls @ 100 mls/hr IVCONT .Q10H [facility] Last Admin: 09/17/22 06:05 Dose: 100 mls/hr Documented By: YANNA Acetaminophen (Ofirmev) 1,000 mg in 100 mls @ 16.7 mls/hr IV .Q6H [facility] Last Admin: 09/17/22 03:36 Dose: 16.7 mls/hr Documented By: YANNA Metoclopramide HCl (Metoclopramide Hcl 10 Mg/2 Ml Vial) 10 mg IVPUSH Q6H PRN PRN Reason: Nausea Last Admin: 09/16/22 21:09 Dose: 10 mg Documented By: YANNA Ondansetron HCl (Ondansetron Hcl 4 Mg/2 Ml Vial) 4 mg IVPUSH Q8H [facility] Last Admin: 09/17/22 03:25 Dose: 4 mg Documented By: YANNA Sodium Chloride (0.9 % Sodium Chloride Flush 3 Ml Syringe) 3 ml IVFLUSH QSHIFT [facility] Last Admin: 09/17/22 07:10 Dose: Not Given Documented By: HARIKA Non-Admin Reason: IV Running Labs 09/17/22 06:02 09/16/22 11:05 Labs: Laboratory Results - last 24 hr 09/16/22 09/16/22 09/17/22 06:10 11:05 06:02 MCV 83.6 MCH 28.2 MCHC 33.7 RDW 13.8 Plt Count 312 MPV 10.8 Immature Gran % (Auto) 0.3 Neut % (Auto) 75.3 H Lymph % (Auto) 15.2 L Kane % (Auto) 9.0 Eos % (Auto) 0.0 Baso % (Auto) 0.2 Lymph # (Auto) 1.9 Kane # (Auto) 1.2 Eos # (Auto) 0.0 Baso # (Auto) 0.0 Abs Immat Gran (auto) 0.04 H Absolute Neuts (auto) 9.6 H Absolute Nucleated RBC 0.000 Nucleated RBC % (auto) 0.0 Anion Gap 15 Estim Creat Clear Calc 128.5 Estimated GFR > 60 Random Glucose 110 Calcium 8.8 D Urine Test NEGATIVE This morning's electrolytes are pending. 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 She appears to be stable for discharge after the PA confirms our electrolytes are within normal parameters and has gone over dietary activity. Activity restrictions were reviewed and questions answered. Time Spent With Patient Time: Total time managing care of this patient today ____ minutes. Quality Stroke Does the patient have a stroke diagnosis?: No VTE Prior VTE?: No VTE Risk Level:: Surgical - moderate VTE Device Contraindication: N/A - Device Ordered VTE Drug Contraindication: Treatment Not Indicated
[2022-09-17 07:18] VITALS: BP 135/66; PULSE 64; RESP 18; TEMP 36.3; O2SAT 98
[2022-09-17 07:19] LABS: Anion Gap 17 (12-20); Blood Urea Nitrogen 5 mg/dL (9-16); Calcium 8.6 mg/dL (8.4-10.2); Carbon Dioxide 18 mmol/L (22-29); Chloride 105 mmol/L (96-108); Creatinine Clr Calc Pharmacy 146.5; Estimated Glomerular Filt Rate > 60; Glucose Random 75 mg/dL (60-115); Potassium 4.1 mmol/L (3.3-5.1); Sodium 136 mmol/L (135-145)
[2022-09-17 07:43] VITALS: O2SAT 98
--- NOTE | 2022-09-17 09:23 | MHC.CM.PN ---
Female 42 s/p Gastric Sleeve is discharged today to home self care. She has arranged for her spouse to provide transportation home.
--- NOTE | 2022-09-17 15:30 | HO.POSTANES ---
Post Anesthesia Evaluation Post Anesthesia Evaluation Vital Signs: Vital Signs Temp Pulse Resp BP Pulse Ox O2 Del Method O2 Flow Rate 09/17/22 07:43 98 Room Air 09/17/22 07:18 97.3 F 64 18 135/66 98 Room Air 09/17/22 03:39 97.0 F 69 17 154/72 H Room Air 96 Anesthesia: General Endotracheal-GETA Mental Status: Awake Pain Control: Satisfactory Nausea/Vomiting: None Hydration: Adequate Anesthesia-Related Issues: No Anes. Related Issues
== END 2022-09-17 10:35 | disposition home or self-care (01) | DRG 403 ==
LOC: HO.SSSA 10:19 → HO.S3 10:28
PROVIDERS: Nurse Practitioner; Physician Assistant Surgical; Admitting Provider Surgery; PCP Internal Medicine; Visit Provider Surgery
PROC: 0DB64Z3 Excision of Stomach, Percutaneous Endoscopic Approach, Vertical (ICD-10-PCS; CPT 43845; principal; 2022-09-16 07:30)
DX: E66.01 Morbid (severe) obesity due to excess calories (principal); K74.00 Hepatic fibrosis, unspecified; K76.0 Fatty (change of) liver, not elsewhere classified; G47.33 Obstructive sleep apnea (adult) (pediatric); D35.02 Benign neoplasm of left adrenal gland; Z68.41 Body mass index [BMI] 40.0-44.9, adult; Z20.822 Contact with and (suspected) exposure to COVID-19; Z87.891 Personal history of nicotine dependence; Z91.040 Latex allergy status; Z88.2 Allergy status to sulfonamides; Z88.5 Allergy status to narcotic agent; Z79.899 Other long term (current) drug therapy
CPT/HCPCS: 36415; 80048; 81025; 85014; 85018; 85025; 86850; 86900; 86901; 87635; 88307; 88342; C9088; C9145; J0131; J0690; J1100; J1170; J2405; J2550; J2765; J3010

== ENCOUNTER → 2022-09-22 09:54 | Outpatient (BNVA) | payer BC, SELFPAY | PROVIDERS: PCP Internal Medicine; Referring Provider Internal Medicine; Visit Provider Physician Assistant Surgical ==

== ENCOUNTER → 2022-10-05 08:41 | Outpatient (BNVA) | payer BC, SELFPAY | PROVIDERS: PCP Internal Medicine; Visit Provider Physician Assistant Surgical ==

== ENCOUNTER → 2022-10-19 08:30 | Outpatient (BNVA) | payer BC, SELFPAY | PROVIDERS: PCP Internal Medicine; Visit Provider Physician Assistant Surgical ==

== ENCOUNTER 2022-10-21 08:01 | Outpatient (REF) | payer BC, SELFPAY ==
--- NOTE | ~2022-10-21 | MM_ITS ---
EXAMINATION: MM SCREENING DIGITAL BREAST TOMOSYNTHESIS, BILATERAL CLINICAL INFORMATION: Screening. Asymptomatic. Age 42. No prior breast imaging. Family history breast cancer, grandmother x2. The lifetime risk of breast cancer based on the Tyrer-Cuzick Model is 21%. COMPARISON: None (current study represents initial baseline exam). TECHNIQUE: Digital breast tomosynthesis is performed in both the craniocaudal and mediolateral oblique views along with computer-aided detection (CAD). Synthesized 2D images are generated from the tomosynthesis. Additional bilateral MLO views are provided. FINDINGS: There are scattered areas of fibroglandular density (ACR BI-RADS breast composition Category b). There are no significant masses, abnormal calcifications, or other abnormalities. No architectural abnormality. Incidental small intramammary nodes present bilateral outer quadrants. The bilateral axilla and skin contours are unremarkable. MM/MM tomosynthesis screening BI IMPRESSION: No mammographic evidence of malignancy. ASSESSMENT: BI-RADS 2: Benign RECOMMENDATION: Routine annual mammography screening. This patient's information was entered into a reminder system with a target due date for their next mammogram.
== END 2022-10-21 08:02 | disposition home or self-care (01) ==
LOC: HO.MAMMO 08:01
PROVIDERS: PCP Internal Medicine; Visit Provider Internal Medicine
DX: Z12.31 Encounter for screening mammogram for malignant neoplasm of breast (principal)
CPT/HCPCS: 77063; 77067

== ENCOUNTER 2022-10-21 09:53 | Outpatient (REF) | payer BC, SELFPAY ==
[2022-10-24 00:59] LABS: HPV mRNA E6/E7 rflx Not Detected (Not Detected)
== END 2022-10-21 09:54 | disposition home or self-care (01) ==
LOC: HO.LNP 09:53
PROVIDERS: Visit Provider Advanced Practice Midwife
DX: Z01.419 Encounter for gynecological examination (general) (routine) without abnormal findings (principal); Z11.51 Encounter for screening for human papillomavirus (HPV)
CPT/HCPCS: 87624; 88142

== ENCOUNTER 2022-12-09 10:20 | Outpatient (AMB) | payer BC, SELFPAY ==
--- NOTE | 2022-12-09 10:23 | A.OFFVIS_ITS ---
Intake VS Expanded 12/09/22 10:30 Height 5 ft 1 in Weight 198 lb 3.2 oz BMI 37.4 BP 152/75 H Blood Pressure Location Rt brachial Blood Pressure Position Sitting Pulse 64 Pulse Source Pulse Oximeter Temp 97.4 F Temperature Source Tympanic Pulse Oximetry 100 Oxygen Delivery Method Room Air Body Fat 81.2 Body Fat Percentage 40.9 Free Fat Mass 117.0 Muscle Mass 111.2 Visceral Mass 10.0 Water Mass 83.8 BMR 1,630 Intake Visit Reasons: (OV) PO LSG 09/16/22 Roof Designer Required: No Accompanied by: Self / Same As Patient Allergies Sulfa (Sulfonamide Antibiotics) [SULFA (SULFONAMIDE ANTIBIOTICS)] Allergy (Severe, Verified 12/09/22 10:34) ANAPHYLAXIS , naphylaxis, throat swelling latex [LATEX] Allergy (Mild, Verified 12/09/22 10:34) RASH oxycodone Adverse Reaction (Intermediate, Verified 12/09/22 10:34) Vomiting Medication List - Last Reconciled 12/09/22 by JORGE Hughes inulin 2 grams PO DAILY multivitamin (Daily Multi-Vitamin tablet) 1 tab PO DAILY HPI HPI Comments History of Present Illness Details This?is a?42?yo female who is s/p LSG 09/16/2022. Presents for 3 month post op visit. Weight at last visit on 10/19/2022 was 208.2 pounds with a BMI of 39.3, weight today is 198.2 pounds, representing a 10 pound weight loss with a BMI today of 37.4.? No complaints of nausea, emesis, abdominal pain or reflux, or constipation. Was on vacation the last few weeks, feels she slacked off . Present meal plan includes: 9-11am Premier shake 1-3pm Pure shake 5pm 1oz soft solid protein 6-8pm Pure shake has stopped doing evening shake taking MVI Exercise routine includes: walking 3 miles/day; less consistent when on vacation [facility] Medical History (Updated 12/09/22 @ 11:05 by JORGE Hughes) Binge-eating disorder, in partial remission, mild Excessive daytime sleepiness Fatigue History of depression History of infertility Loud snoring Morbid obesity ALMA DELIA (obstructive sleep apnea) PONV (postoperative nausea and vomiting) Witnessed apneic spells Surgical History History of bilateral fallopian tube excision History of History of sleeve gastrectomy Family History Mother High cholesterol Arthritis Bone disease Father Kidney failure Daughter No problems noted. Social History Household Members: Family Household Members Other:: 3 Housing: House Are you a primary family member caretaker to a significant other at home: Yes (9 year old daughter) Do you presently have visiting nurse or other home services: No Alcohol intake: current Alcohol intake frequency: holidays/special occasions only Patient Tobacco Use Status: Former Tobacco user Quit Date: 2012 Tobacco use type: Cigarette e-Cigarette/Vaping Use: Never Used service: No Current occupational status: employed Cognitive needs: No Hearing needs: No Vision needs: Yes Physical Exam Vital Signs: Last Vital Signs Temp 97.4 F 12/09/22 10:30 Pulse 64 12/09/22 10:30 BP 152/75 H 12/09/22 10:30 Pulse Ox 100 12/09/22 10:30 Oxygen Delivery Method Room Air 12/09/22 10:30 BMI result Body Mass Index 37.4 Assessment & Plan Assessment & Plan (1) S/P laparoscopic sleeve gastrectomy: Code(s): Z98.84 - Bariatric surgery status (2) Obesity: Code(s): E66.9 - Obesity, unspecified Plan Meal plan adjustment: Breakfast- Premier shake 30g (2 scoops in 8oz water) Lunch- 2oz protein (2 eggs, bar, Barb[place] yogurt, or 4 forks meat) Afternoon- Pure shake 25g (1 scoop in 8oz water) Dinner- 2oz protein, 2oz veg/salad Meal plan texted to pt. RTC in January at next available visit and pt will text me between appts with any issues. Patient is obese and is not considered stable at this time. I spent a total of 30 minutes reviewing/updating records, examining the patient and counseling the patient on weight management as detailed above. Coding Level of Care Code Est Pt Level 4 (42671) Diagnoses S/P laparoscopic sleeve gastrectomy Z98.84 Obesity E66.9
[2022-12-09 10:30] VITALS: BP 152/75; PULSE 64; TEMP 36.3; O2SAT 100; BMI 37.4
== END 2022-12-09 11:05 | disposition home or self-care (01) ==
PROVIDERS: PCP Internal Medicine; Visit Provider Physician Assistant Surgical
DX: E66.9 Obesity, unspecified (principal); Z68.37 Body mass index [BMI] 37.0-37.9, adult; Z90.3 Acquired absence of stomach [part of]; Z98.84 Bariatric surgery status
CPT/HCPCS: 99214

== ENCOUNTER → 2022-12-09 10:20 | Outpatient (BNVA) | payer BC, SELFPAY | PROVIDERS: PCP Internal Medicine; Visit Provider Physician Assistant Surgical ==

== ENCOUNTER 2023-10-25 08:34 | Outpatient (REF) | payer BC, SELFPAY ==
--- NOTE | ~2023-10-25 | MM_ITS ---
EXAMINATION: MM SCREENING DIGITAL BREAST TOMOSYNTHESIS, BILATERAL CLINICAL INFORMATION: Screening. Asymptomatic. COMPARISON: Mammography: This study is compared with prior exams dating back to TECHNIQUE: Digital breast tomosynthesis is performed in both the craniocaudal and mediolateral oblique views along with computer-aided detection (CAD). Synthesized 2D images are generated from the tomosynthesis. FINDINGS: There are scattered areas of fibroglandular density (ACR BI-RADS breast composition Category b). There are no significant masses, abnormal calcifications, or other abnormalities. MM/MM tomosynthesis screening BI IMPRESSION: No mammographic evidence of malignancy. ASSESSMENT: BI-RADS BI-RADS 1 - Negative RECOMMENDATION: Routine annual mammography screening. 1 year F/U This examination should not preclude the clinical evaluation of a suspicious palpable abnormality. This patient's information was entered into a reminder system with a target due date for their next mammogram.
== END 2023-10-25 08:35 | disposition home or self-care (01) ==
LOC: HO.MAMMO 08:34
PROVIDERS: PCP Internal Medicine; Visit Provider Internal Medicine
DX: Z12.31 Encounter for screening mammogram for malignant neoplasm of breast (principal)
CPT/HCPCS: 77063; 77067

== ENCOUNTER → 2023-10-25 08:45 | Outpatient (BNV) | payer BC, SELFPAY | PROVIDERS: PCP Internal Medicine; Visit Provider Radiology Diagnostic Radiology | DX: Z12.31 Encounter for screening mammogram for malignant neoplasm of breast (principal) | CPT/HCPCS: 77063; 77067 ==

== ENCOUNTER 2024-02-09 09:57 | Outpatient (AMB) | payer BC, SELFPAY ==
[2024-02-09 10:02] VITALS: BP 122/68; BMI 43.1
--- NOTE | 2024-02-09 10:02 | A.OFFVIS_ITS ---
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 Required: No Information Interpreted: clinical only Curriculum Development Specialist: Curriculum Development Specialist Present Allergies Sulfa (Sulfonamide Antibiotics) [SULFA (SULFONAMIDE ANTIBIOTICS)] Allergy (Severe, Verified 02/09/24 10:03) ANAPHYLAXIS , naphylaxis, throat swelling latex [LATEX] Allergy (Mild, Verified 02/09/24 10:03) RASH oxycodone Adverse Reaction (Intermediate, Verified 02/09/24 10:03) Vomiting Medication List - Last Reconciled 02/09/24 by Rosangela Varner CNM inulin 2 grams PO DAILY multivitamin (Daily Multi-Vitamin tablet) 1 tab PO DAILY Is last menstrual period known: Yes Last menstrual period: 01/18/24 Do you need a note to return to daycare/school/sports/work: No HPI HPI 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 It has been a challenging year she lost a aunt 1 year ago who she was very close to that was difficult. She has resumed her efforts for self-care she is trying to well they have bought a treadmill and are setting it up in the basement so she can exercise there. She just had her mammogram and it was fine her Pap smear last year was completely negative with negative HPV she has no worries whatsoever about STIs. She and her for 20 years and she feels that things are very good. 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 She reports normal regular menses they seem to be getting a little heavier but they are fine. Every now and then she has a twinge of a pain that not her to her knees that she now knows is a small little cyst that probably is rupturing it is usually before her menses she had them assessed many years ago and it was always the case that that is what was now that she knows what it is easier to manage. [facility] Medical History PONV (postoperative nausea and vomiting) ALMA DELIA (obstructive sleep apnea) Binge-eating disorder, in partial remission, mild Morbid obesity Loud snoring Witnessed apneic spells Fatigue Excessive daytime sleepiness History of infertility History of depression Surgical History History of bilateral fallopian tube excision History of History of sleeve gastrectomy Family History Mother High cholesterol Arthritis Bone disease Father Kidney failure Daughter No problems noted. 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 care center to a significant other at home: Yes (9 year old daughter) Do you presently have visiting nurse or other home services: No Alcohol intake: current Alcohol intake frequency: holidays/special occasions only Patient Tobacco Use Status: Former Tobacco user Tobacco use type: Cigarette e-Cigarette/Vaping Use: Never Used service: No Current occupational status: employed Cognitive needs: No Hearing needs: No Vision needs: Yes Female Reproductive History Menstrual Age of Menarche: 14 Duration of menses: 6-7 days Date of last menstrual period: 01/18/24 control method: none Total pregnancies: 1 Full term: 1 Date of last pap smear: 10/22/22 (negative) History of abnormal pap smear: Yes Date of Mammogram: 10/25/23 (negative) Physical Exam Vital Signs: Last Vital Signs BP 122/68 02/09/24 10:02 BMI result Body Mass Index 43.1 Const General: healthy appearing, comfortable, no acute distress, well developed and alert Nutritional Appearance: average body habitus Orientation/consciousness: patient oriented x3 Limitations: no limitations HEENT Head: Yes normocephalic Neck Neck: Yes normal visual inspection Chest Chest palpation & inspection: normal inspection of the chest Breast/axilla inspection: normal inspection of the breasts and normal inspection of the axillae Breast/axilla palpation: normal palpation of the breasts and normal palpation of the axillae Resp Effort & Inspection: normal respiratory effort GI Inspection: Yes normal to inspection, No Abdominal wall edema and No distended Palpation (GI): Soft to palpation and nontender Other: External exam within normal limits vagina pink and moist cervix multiparous pink smooth healthy appearing healthy-appearing clear mucus uterus midposition mobile nontender no adnexal tenderness or enlargement good tone with Kegel. General: Yes bladder normal to palpation External Female Exam: normal external appearance and normal appearance of the u rethra Speculum Exam - Vagina: normal appearance of the vagina, normal palpation and normal vaginal discharge Speculum Exam - Cervix: normal appearance of the cervix, normal palpation and nontender Bimanual exam- vagina & uterus: normal bimanual exam, normal palpation, uterine size normal, bladder normal to palpation, consistency normal, normal palpation, uterine mobility normal, uterine shape normal, No Cervical tenderness present, non-tender and no cervical motion tenderness Bimanual Exam- Adnexa, other: normal adnexae, no masses, normal and No adnexal tenderness Neuro General: patient oriented x3 Results Reviewed Results Reviewed: Name: Camila Peoples Age/Sex: 42/F Attending: Rosangela Varner CNM : 1980 Submitted by: Rosangela Varner CNM Copies to: MR #: [id number] Status: DEP REF Collected: 10/21/22 Location: [facility] Received: 10/22/22 Interpretation Satisfactory for evaluation. No endocervical cells seen. Negative for intraepithelial lesion or malignancy. HPV mRNA E6/E7: NOT DETECTED This assay detects E6/E7 viral messenger RNA (mRNA) from 14 high-risk HPV types (16, 18, 31, 33, 35, 39, 45, 51, 52, 56, 58, 59, 66, 68) HPV testing performed by [facility], [place], [place]. See reference laboratory pion of the EMR for entire report. Clinical Information LMP: 09/27/22 Previous PAP test: 9 years, Unknown findings Material Received ThinPrep-Cervical Electronically Signed By: LILI Hassan (ASCP) 11/11/22 [id number] The Pap Test is a screening procedure with the inherent possibility of both false negative and false positive results. Results should be interpreted in the context of historic and current clinical findings. R eliability of the Pap Test is enhanced by performing the test on a regular repetitive basis. Patient: Camila Peoples Age/Sex: 42/F [id number] MR#: [id number] Page 1 of 1 Assessment & Plan Assessment & Plan (1) Obesity: Code(s): E66.9 - Obesity, unspecified Category: Medical (2) Cervical cancer screening: Comment: 10/21/2022 Pap is negative with negative HPV. Code(s): Z12.4 - Encounter for screening for malignant neoplasm of cervix Category: Medical (3) Fibroid uterus: Comment: 3 cm fibroid noted on CT scan. Code(s): D25.9 - Leiomyoma of uterus, unspecified Category: Medical (4) S/P laparoscopic sleeve gastrectomy: Code(s): Z98.84 - Bariatric surgery status Category: Surgical (5) Breast cancer screening: Code(s): Z12.39 - Encounter for other screening for malignant neoplasm of breast Category: Medical Plan -----Discussed in this visit the following: healthy balanced diet, regular and consistent exercise, getting recommended health screens, doing the best she can for her particular health concerns, kegel exercises, pap smear screening and followup recommendations, mammography screening and SBE, normal changes in cycles in her life stage- Discussed the challenges of grieving and that it can really take a toll but she is doing good things for her health now and she has got a good plan. Discussed ways of sneaking in a walk but it is challenging with 2 parents working different shifts. She is up-to-date on her mammograms she is up-to-date on her Pap smears she had no need for any other STI testing she is continuing to work on her health and she has a primary care provider we will see her next year. Coding Level of Care Code Est Pt Prev Care 40-64y(15552) Diagnoses Obesity E66.9 Cervical cancer screening Z12.4 Fibroid uterus D25.9 S/P laparoscopic sleeve gastrectomy Z98.84 Breast cancer screening Z12.39
== END 2024-02-09 10:47 | disposition home or self-care (01) ==
PROVIDERS: PCP Internal Medicine; Visit Provider Advanced Practice Midwife
DX: Z01.419 Encounter for gynecological examination (general) (routine) without abnormal findings (principal); D25.9 Leiomyoma of uterus, unspecified; Z98.84 Bariatric surgery status; Z12.39 Encounter for other screening for malignant neoplasm of breast
CPT/HCPCS: 99396

== ENCOUNTER → 2024-02-09 09:57 | Outpatient (BNVA) | payer BC, SELFPAY | PROVIDERS: PCP Internal Medicine; Visit Provider Advanced Practice Midwife ==

== ENCOUNTER 2024-10-30 08:17 | Outpatient (REF) | payer BC, SELFPAY | END 2024-10-30 08:18 | disposition home or self-care (01) | LOC: HO.MAMMO 08:17 | PROVIDERS: PCP Internal Medicine; Visit Provider Internal Medicine | DX: Z12.31 Encounter for screening mammogram for malignant neoplasm of breast (principal) | CPT/HCPCS: 77063; 77067 ==

== ENCOUNTER → 2024-10-30 08:30 | Outpatient (BNV) | payer BC, SELFPAY | PROVIDERS: PCP Internal Medicine; Visit Provider Internal Medicine | DX: Z12.31 Encounter for screening mammogram for malignant neoplasm of breast (principal) | CPT/HCPCS: 77063; 77067 ==

== ENCOUNTER 2025-02-13 09:51 | Outpatient (AMB) | payer BC, SELFPAY ==
--- NOTE | 2025-02-13 09:51 | A.OFFVIS_ITS ---
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 Coach Operator: Coach Operator Present (Mira) Accompanied by: Self / Same As Patient Allergies Sulfa (Sulfonamide Antibiotics) (SULFA (SULFONAMIDE ANTIBIOTICS)) Allergy (Severe, Verified 02/13/25 09:53) ANAPHYLAXIS , naphylaxis, throat swelling latex (LATEX) Allergy (Mild, Verified 02/13/25 09:53) RASH oxycodone Adverse Reaction (Intermediate, Verified 02/13/25 09:53) Vomiting Medication List - Last Reconciled 02/13/25 by Rosangela Varner CNM No Known Home Meds Is last menstrual period known: Yes Last menstrual period: 01/31/25 Post menopausal: No Patient : No HPI HPI 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 She is doing well with being in her 40s with the 1 exception of noticing that her periods are coming a little bit closer sometimes every 3 weeks and they are lasting longer and they are heavier she is not debilitated by them but still it is getting more annoying she and her daughter who has just started her period or also syncing with each other which makes things more challenging. She does have known fibroid. No worries at all about STDs and declines exam for that. Last Pap was -20 23 and she has no history of abnormal Paps. History of infertility her fallopian tubes were completely blocked and were removed in the process of fertility treatment she and her have 1 daughter who is now 12. 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 [facility] Medical History PONV (postoperative nausea and vomiting) ALMA DELIA (obstructive sleep apnea) Binge-eating disorder, in partial remission, mild Morbid obesity Loud snoring Witnessed apneic spells Fatigue Excessive daytime sleepiness History of infertility History of depression Surgical History History of sleeve gastrectomy History of History of bilateral fallopian tube excision Family History Mother High cholesterol Arthritis Bone disease Father Kidney failure Daughter No problems noted. Social History Household Members: Family Household Members Other:: 3 Housing: House Are you a primary daytime caregiver to a significant other at home: Yes (9 year old daughter) Do you presently have visiting nurse or other home services: No Alcohol intake: current Alcohol intake frequency: holidays/special occasions only Patient Tobacco Use Status: Former Tobacco user Tobacco use type: Cigarette e-Cigarette/Vaping Use: Never Used service: No Current occupational status: employed Cognitive needs: No Hearing needs: No Vision needs: Yes Female Reproductive History Menstrual Age of Menarche: 14 Duration of menses: >10 days Date of last menstrual period: 01/31/25 control method: none Total pregnancies: 1 Full term: 1 Date of last pap smear: 10/21/22 (negative pap smear. negative hpv ) History of abnormal pap smear: Yes Date of Mammogram: 10/30/24 (bi rad 1) Physical Exam Const General: healthy appearing, comfortable, no acute distress, well developed and alert Nutritional Appearance: average body habitus Orientation/consciousness: patient oriented x3 Limitations: no limitations HEENT Head: Yes normocephalic Neck Neck: Yes normal visual inspection Chest Chest palpation & inspection: normal inspection of the chest Breast/axilla inspection: normal inspection of the breasts and normal inspection of the axillae Breast/axilla palpation: normal palpation of the breasts and normal palpation of the axillae Resp Effort & Inspection: normal respiratory effort GI Inspection: Yes normal to inspection, No Abdominal wall edema and No distended Palpation (GI): Soft to palpation and nontender Other: Vulva normal vagina pink and moist cervix nulliparous pink smooth healthy appearing mobile nontender uterus not enlarged nontender anteverted mobile adnexa nonenlarged nontender good muscle tone. General: Yes bladder normal to palpation External Female Exam: normal external appearance and normal appearance of the urethra Speculum Exam - Vagina: normal appearance of the vagina, normal palpation and normal vaginal discharge Speculum Exam - Cervix: normal appearance of the cervix, normal palpation and nontender Bimanual exam- vagina & uterus: normal bimanual exam, normal palpation, uterine size normal, bladder normal to palpation, consistency normal, normal palpation, uterine mobility normal, uterine shape normal, No Cervical tenderness present, non-tender and no cervical motion tenderness Bimanual Exam- Adnexa, other: normal adnexae, no masses, normal and No adnexal tenderness Neuro General: patient oriented x3 Assessment & Plan Assessment & Plan (1) Cervical cancer screening: Comment: 10/21/2022 Pap is negative with negative HPV. Code(s): Z12.4 - Encounter for screening for malignant neoplasm of cervix Category: Medical (2) Fibroid uterus: Comment: 3 cm fibroid noted on CT scan. Code(s): D25.9 - Leiomyoma of uterus, unspecified Category: Medical (3) Breast cancer screening: Code(s): Z12.39 - Encounter for other screening for malignant neoplasm of breast Category: Medical (4) Morbid obesity: Comment: Suggested daily walks with sister if able.... Code(s): E66.01 - Morbid (severe) obesity due to excess calories Category: Medical (5) S/P laparoscopic sleeve gastrectomy: Code(s): Z98.84 - Bariatric surgery status Category: Surgical (6) Excessive and frequent menstruation: Comment: Has known fibroid we will get ultrasound to re-evaluate and decide if EMB is warranted after... Code(s): N92.0 - Excessive and frequent menstruation with regular cycle Category: Medical Plan -----Discussed in this visit the following: healthy balanced diet, regular and consistent exercise, getting recommended health screens, doing the best she can for her particular health concerns, kegel exercises, pap smear screening and followup recommendations, mammography screening and SBE, normal changes in cycles in her life stage--- . She just had her mammogram. She is up-to-date with everything else. Discussed the increasing frequency of the menstruation that is not debilitating to her but it is starting to get more annoying. Discussed beginning a workup see if the fibroids have increased in number or size. Consider whether not an EMB is indicated at the follow-up discussion. Possible remedies if there is nothing extreme might be progestin only OCPs or Mirena IUD also recommend checking for anemia. We will have a visit after the ultrasound and review it and plan next steps. Orders: Orders Complete Blood Count no Diff Today D25.9 - Leiomyoma of uterus, unspecified, E66.01 - Morbid (severe) obesity due to excess calories, N92.0 - Excessive and frequent menstruation with regular cycle, Z12.39 - Encounter for other screening for malignant neoplasm of breast, Z12.4 - Encounter for screening for malignant neoplasm of cervix Coding Level of Care Code Est Pt Prev Care 40-64y(38571) Diagnoses Cervical cancer screening Z12.4 Fibroid uterus D25.9 Breast cancer screening Z12.39 Morbid obesity E66.01 S/P laparoscopic sleeve gastrectomy Z98.84 Excessive and frequent menstruation N92.0
[2025-02-13 10:21] VITALS: BP 126/74; BMI 40.6
== END 2025-02-13 10:53 | disposition home or self-care (01) ==
LOC: HO.HWSM 09:51
PROVIDERS: PCP Internal Medicine; Visit Provider Advanced Practice Midwife
DX: Z01.419 Encounter for gynecological examination (general) (routine) without abnormal findings (principal); D25.9 Leiomyoma of uterus, unspecified; E66.01 Morbid (severe) obesity due to excess calories; Z68.41 Body mass index [BMI] 40.0-44.9, adult; Z12.39 Encounter for other screening for malignant neoplasm of breast; Z98.84 Bariatric surgery status; N92.0 Excessive and frequent menstruation with regular cycle
CPT/HCPCS: 99396; 99459